=== PATIENT | female | born 1985 | race Caucasian/White ===

== ENCOUNTER 2023-03-19 13:17 | Emergency (ER) | payer MEDICAID ==
[2023-03-19 13:31] VITALS: BP 139/89; O2SAT 98
[2023-03-19 13:45] LABS: BILIRUBIN,URINE NEGATIVE (NEGATIVE); GLUCOSE, URINE (UA) NEGATIVE (NEGATIVE); KETONES,URINE (UA) NEGATIVE (NEGATIVE); LEUKOCYTE ESTERASE, URINE LARGE (NEGATIVE); NITRITE,URINE NEGATIVE (NEGATIVE); OCCULT BLOOD,URINE LARGE (NEGATIVE); PH,URINE 6.5 PH (5.0-7.5); PROTEIN,URINE NEGATIVE (NEGATIVE); UROBILINOGEN,URINE 0.2 (NORMAL) E.U./dL (NORMAL)
[2023-03-19 13:48] LABS: CLARITY,URINE HAZY (CLEAR)
[2023-03-19 13:55] LABS: BACTERIA,URINE Few /HPF (None Seen); SQUAMOUS EPITHELIAL CELL,UR FEW Squamous (<= Few); WBC CLUMPS,URINE PRESENT; WBC,URINE >25 /HPF (0-5)
--- NOTE | 2023-03-19 13:56 | ED Physician Documentation ---
History of Present Illness - Stated complaint Stated Complaint: ,BLEEDING - Chief complaint Chief Complaint: Abd Pain - Additonal information Additional information: 38-year-old female here for evaluation of dysuria, urgency, frequency and hematuria. Began having symptoms yesterday evening. She has a history of kidney stones but denies flank or abdominal pain similar to that in the past. No fevers or vomiting. The symptoms did occur after recent sexual activity. Review of Systems Constitutional: denies: Fever, Chills Cardiac: reports: Reviewed and negative Respiratory: reports: Reviewed and negative GI: reports: Abdominal Pain. 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 - Present Medications Home Medications: Ambulatory Orders Medication Instructions Recorded Confirmed Estradiol Micronized [Estradiol] 400 gm MC BID 10/30/12 10/06/14 Aspirin 81 mg PO BID 10/06/14 10/06/14 Phenazopyridine HCl [Pyridium] 200 mg PO TID PRN #6 tablet 03/19/23 cephALEXin [Keflex] 500 mg PO BID #14 cap 03/19/23 - Allergies Allergies/Adverse Reactions: Allergies Allergy/AdvReac Type Severity Reaction Status Date / Time No Known Drug Allergies Allergy Verified 09/24/15 18:03 - Social History Does the pt smoke?: No Smoking Status: Never smoker Does the pt drink ETOH?: Yes Does the pt have substance abuse?: No - Immunizations Immunizations are current?: Yes - POLST Patient has POLST: No PD ED PE NORMAL - General General: Alert and oriented X 3, No acute distress - Cardiac Cardiac: RRR, No murmur - Respiratory Respiratory: Clear bilaterally - Abdomen Abdomen: Normal bowel sounds, Soft, Non distended. No: Non tender (suprapubic tenderness without guarding or rebound. No flank or CVA tenderness) - Back Back: No CVA TTP - Derm Derm: Normal color, Warm and dry - Extremities Extremities: No deformity - Neuro Neuro: Alert and oriented X 3 Eye Opening: Spontaneous Motor: Obeys Commands Verbal: Oriented GCS Score: 15 Results - Vitals Vitals: Vital Signs - 24 hr 03/19/23 13:19 Temperature 36.1 C L Heart Rate 92 Respiratory 17 Rate Blood Pressure 139/89 H O2 Saturation 98 Oxygen O2 Source Room air - Labs Labs: Laboratory Tests 03/19/23 13:26 Urine Color YELLOW Urine Clarity HAZY Urine pH 6.5 Ur Specific [place] <=1.005 Urine Protein NEGATIVE Urine Glucose (UA) NEGATIVE Urine Ketones NEGATIVE Urine Occult Blood LARGE H Urine Nitrite NEGATIVE Urine Bilirubin NEGATIVE Urine Urobilinogen 0.2 (NORMAL) Ur Leukocyte Esterase LARGE H Urine RBC 6-10 H Urine WBC >25 H Urine WBC Clumps PRESENT Ur Squamous Epith Cells FEW Squamous Urine Bacteria Few Ur Microscopic Review INDICATED Urine Culture Comments INDICATED PD Medical Decision Making - ED course Complexity details: reviewed results, re-evaluated patient, considered differential, d/w patient ED course: 38-year-old female here for evaluation of dysuria urgency frequency and hematuria. Symptoms began last night. No fevers flank pain or vomiting. Urinalysis is consistent with acute cystitis. Given lack of fevers or flank pain I have lower suspicion for a sending infection or pyelonephritis. Patient does have a history of renal and ureter colic though symptoms today are not consistent with that. Will treat with cephalexin and Pyridium. I discussed with patient the usual appropriate return precautions for worsening symptoms. Departure - Departure Disposition: 01 Home, Self Care Clinical Impression: Acute cystitis Qualifiers: Hematuria presence: with hematuria Qualified Code(s): N30.01 - Acute cystitis with hematuria Condition: Stable Record reviewed to determine appropriate education?: Yes Prescriptions: cephALEXin [Keflex] 500 mg PO BID #14 cap Phenazopyridine HCl [Pyridium] 200 mg PO TID PRN #6 tablet PRN Reason: dysuria Comments: As discussed at the bedside you do have a urinary tract infection. I sent a prescription for antibiotics to the [facility] in [place]. I also wrote a prescription for some Pyridium a medication that will turn your urine bright orange and may help with the urgency and pain with urination. With the antibiotics I would expect improved symptoms over the next 24 to 48 hours. Return to the ER if you are having any new or worsening symptoms including fevers, flank pain or vomiting. Forms: PCP List
[2023-03-19] MEDS ORDERED: cephALEXin 250 MG CAPSULE PO STA (13:59)
[2023-03-19 14:09] LABS: HCG UR QUAL NEGATIVE
== END 2023-03-19 14:09 | disposition home or self-care (01) ==
LOC: ED 13:17
DX: N30.01 Acute cystitis with hematuria (principal)
CPT/HCPCS: 81001; 81003; 81025; 87086; 99283